=== PATIENT | male | born 1995 | race Caucasian/White ===

== ENCOUNTER 2025-07-29 20:53 | Emergency (ER) | payer OTHER, SELFPAY ==
[~2025-07-29 20:53] MED LIST: Iopamidol-370 76% 500 ML MDV (1 ML CHARGE) ONE
[2025-07-29 23:28] LABS: #Basophils 0.03 10x3/uL (0.0-0.2); #Eosinophils Less than 0.03 10x3/uL (0.0-0.7); #Monocytes 1.09 10x3/uL (0.11-0.59); #Neutrophils 6.19 10x3/uL (1.40-6.50); %Basophils 0.3 % (0.0-1.0); %Eosinophils 0.2 % (0.0-10.0); %Lymphocytes 24.4 % (21.0-51.0); %Monocytes 11.2 % (0.0-10.0); %Neutrophils 63.6 % (42.0-75.0); Hematocrit 46.2 % (42.0-52.0); Hemoglobin 15.6 g/dL (14.0-18.0); Mean Corpuscular Hemoglobin 29.2 pg (27.0-31.0); Mean Corpuscular Volume 86.5 fL (78.0-98.0); Platelet Count 202 10x3/uL (130-400); Red Blood Cell (RBC) Count 5.34 mill/uL (4.70-6.10); White Blood Cell (WBC) Count 9.74 10x3/uL (4.8-10.8)
[2025-07-29 23:50] LABS: ALT (SGPT) 30 U/L (Less than 45); AST (SGOT) 40 U/L (11-34); Albumin 4.7 g/dL (3.1-4.5); Alkaline Phosphatase 82 U/L (40-110); Anion Gap 15 mmol/L (10-20); BUN (Urea Nitrogen) 14 mg/dL (8.9-20.6); Bilirubin, Total 0.5 mg/dL (0.3-1.2); Calc. Creatinine Clearance 0 mL/min (70-130); Calcium 9.6 mg/dL (7.8-10.44); Carbon Dioxide 24 mmol/L (22-29); Chloride 104 mmol/L (98-107); Globulin 3.7 g/dL (2.4-3.5); Glucose 89 mg/dL (70-105); Lipase 22 U/L (8-78); Potassium 3.6 mmol/L (3.5-5.1); Sodium 139 mmol/L (136-145)
[2025-07-30] MEDS ORDERED: Dicyclomine 20 MG TAB ONE (00:26)
[2025-07-30] MEDS ORDERED: Lidocaine Viscous Sol 2% 15 ml UD Cup ONE (00:27)
[2025-07-30] MEDS ORDERED: Mag-Al 1200 mg/1200 mg/30 ML UDCUP ONE (00:27)
[2025-07-30 01:56] LABS: Bacteria/HPF None Seen HPF (None Seen); CAUTI Indications for Culture Fever or rigors; Glucose, Urine (Dipstick) Normal (Negative); Leukocyte Negative Leu/uL (Negative); Protein, Urine (Dipstick) Negative (Neg-Trace); RBC/HPF 0-3 HPF (0-3); WBC/HPF 0-3 HPF (0-3)
[2025-07-30 01:57] LABS: Specific Gravity, Urine Greater than 1.050 (1.002-1.036)
[2025-07-30 01:58] LABS: Urine Culture Reflex No No
== END 2025-07-30 02:37 | disposition home or self-care (01) ==
LOC: ERS 20:53
DX: K29.00 Acute gastritis without bleeding (principal)
CPT/HCPCS: 74177; 80053; 81001; 83690; 85025; Q9967